=== PATIENT | female | born 1970 | race Two or more races ===

== ENCOUNTER 2024-09-24 10:32 | Emergency (ER) | payer SELFPAY ==
[~2024-09-24] VITALS: Ht 157.5 cm; Wt 50.0 kg
[2024-09-24 10:53] VITALS: O2SAT 99
[2024-09-24 11:32] LABS: BASOPHILS % 1.2 % (0.0-2.0); EOSINOPHILS % 4.2 % (0.0-5.0); HEMATOCRIT. 42.3 % (36.0-48.0); HEMOGLOBIN. 13.7 g/dL (12.0-16.0); LYMPHOCYTES % 28.7 % (20.0-50.0); MEAN CORPUSCULAR HEMOGLOBIN 31.7 pg (28.0-32.0); MEAN CORPUSCULAR HGB CONC 32.3 g/dL (31.0-37.0); MEAN CORPUSCULAR VOLUME 98.1 fL (81.0-99.0); MEAN PLATELET VOLUME 7.3 fl (7.4-10.4); MONOCYTES % 7.9 % (2.0-8.0); PLATELET 348 x1000/uL (130-400); RED BLOOD CELL COUNT 4.31 mill/uL (4.2-5.4); RED CELL DISTRIBUTION WIDTH 14.2 % (11.6-14.6); WHITE BLOOD COUNT 7.3 x1000/uL (4.5-11.0)
[2024-09-24 11:35] LABS: CHLORIDE 106 mEq/L (98-107); SODIUM 141 mEq/L (136-145)
[2024-09-24 11:36] LABS: CALCIUM 10.2 mg/dL (8.7-10.4); CARBON DIOXIDE 26 mEq/L (21-32)
[2024-09-24 11:41] LABS: CREATININE 0.9 mg/dL (0.6-1.0); GLUCOSE 77 mg/dL (70-105); UREA NITROGEN BLOOD 10 mg/dL (9-23)
[2024-09-24 11:42] VITALS: TEMP 36.6; O2SAT 99
[2024-09-24 11:43] LABS: ALANINE AMINOTRANSFERASE 28 IU/L (10-49); ALBUMIN 4.4 g/dL (3.2-4.8); ASPARTATE AMINOTRANSFERASE 25 IU/L (<34); BILIRUBIN DIRECT < 0.1 mg/dL (<=3.0); BILIRUBIN TOTAL 0.4 mg/dL (0.1-1.0); PROTEIN TOTAL 7.3 g/dL (6.0-8.3)
[2024-09-24 11:49] LABS: TROPONIN I HIGH SENSITIVITY < 4 ng/L (3.0-34)
[2024-09-24 12:12] LABS: CLARITY URINE CLEAR (CLEAR); COLOR URINE YELLOW (YELLOW); GLUCOSE URINE NEGATIVE (NEGATIVE); KETONES URINE NEGATIVE (NEGATIVE); LEUKOCYTE ESTERASE URINE NEGATIVE (NEGATIVE); NITRITE URINE NEGATIVE (NEGATIVE); OCCULT BLOOD URINE 1+ (NEGATIVE); PH URINE 6.5 (4.5-8.0); PROTEIN URINE NEGATIVE (NEGATIVE); SPECIFIC GRAVITY URINE 1.018 (1.005-1.030); UROBILINOGEN URINE 0.2 E.U./dL (0.2-1.0)
[2024-09-24 12:41] LABS: BACTERIA URINE 2+; SQUAMOUS EPITHELIAL CELL URINE 3+ /lpf (RARE/1+); YEAST URINE NONE SEEN
[2024-09-24 12:45] VITALS: BP 148/86; PULSE 78; RESP 16
[2024-09-24] MEDS: FAMOTIDINE 20MG TABLET PO ONE (12:45)
[2024-09-24] MEDS: KETOROLAC 30MG/ML VIAL IM ONE (12:45)
[2024-09-24] MEDS: MAGNESIUM/ALUMINUM HYDROXIDE/SIMETHICONE 30ML UDC PO ONE (12:45)
[2024-09-24] MEDS ORDERED: IBUP-2028 MT (15:05)
[2024-09-24] MEDS ORDERED: FAMO-135 PO (15:05)
== END 2024-09-24 15:20 | disposition home or self-care (01) ==
LOC: ER 10:32
DX: K82.8 Other specified diseases of gallbladder (principal); Z79.899 Other long term (current) drug therapy; Z98.890 Other specified postprocedural states
CPT/HCPCS: 99285; 74176; 76705; 71045; 80076; 80048; 81003; 81025; 83690; 85025; 84484; 36415; 93005; 96372; J1885